=== PATIENT | female | born 1980 | race Caucasian/White ===

== ENCOUNTER 2020-08-15 08:32 | Emergency (ER) | payer SELFPAY ==
[2020-08-15 09:19] LABS: HEMATOCRIT 37.1 % (37.0-47.0); IMMATURE GRANULOCYTES 0.3 % (0.0-5.0); MEAN CELL VOLUME 82.3 fL CALC (80.0-100.0); MEAN CORPUSCULAR HGB 26.6 pG CALC (26.0-32.0); MEAN CORPUSCULAR HGB CONC 32.3 g/dL CAL (32.0-36.0); NEUT# 2.92 thou/uL (2.00-7.15); RED BLOOD COUNT 4.51 mill/uL (4.20-5.60); RED CELL DISTRI WIDTH 14.3 % (11.5-15.5)
[2020-08-15 09:31] LABS: ALBUMIN 4.5 g/dL (3.2-5.0); ALKALINE PHOSPHATASE 79 u/l (38-126); ANION GAP 11 (6-22 (CALC)); BILIRUBIN, TOTAL 0.9 mg/dL (0.0-1.4); BUN 13 mg/dL (7-17); BUN/CREATININE RATIO 20 (12-20 (CALC)); CARBON DIOXIDE 24 mmol/l (22-30); CHLORIDE 107 mmol/l (95-108); CREATININE 0.7 mg/dL (0.5-1.0); GFR > 60 ML/MIN (>=60 (CALC)); GFR FOR AFR.AMER. > 60 ML/MIN (>=60 (CALC)); POTASSIUM 3.9 mmol/l (3.5-5.1); SGOT/AST 20 u/l (14-36); SODIUM 138 mmol/l (137-146); TOTAL PROTEIN 7.6 g/dL (6.3-8.2)
[2020-08-15] MEDS ORDERED: ZOFRAN4 MG/TAB PO (11:08)
[2020-08-15] MEDS ORDERED: AFRIN NASAL SP0.05 % (11:08)
[2020-08-15 11:23] VITALS: BP 106/60
== END 2020-08-15 11:24 | disposition home or self-care (01) | DRG 206 ==
LOC: ED 08:32
PROVIDERS: Emergency Medicine
DX: J22 Unspecified acute lower respiratory infection (principal); R11.2 Nausea with vomiting, unspecified; F41.9 Anxiety disorder, unspecified; Z20.822 Contact with and (suspected) exposure to COVID-19

== ENCOUNTER 2020-09-17 05:54 | Emergency (ER) | payer SELFPAY ==
[~2020-09-17] VITALS: Ht 172.7 cm; Wt 85.0 kg
[~2020-09-17 05:54] MED LIST: AFRIN NASAL SP0.05 %; ZOFRAN4 MG/TAB PO
[2020-09-17] MEDS ORDERED: METFORMIN HCL500 M2 PO (06:16)
[2020-09-17] MEDS ORDERED: ESTRADIOL10 MCG (06:19)
[2020-09-17] MEDS ORDERED: ALLERGY RELF10 M3 PO (06:19)
[2020-09-17] MEDS ORDERED: ADVANCED E PO (06:20)
[2020-09-17 07:50] VITALS: BP 102/61
== END 2020-09-17 08:04 | disposition home or self-care (01) | DRG 90 ==
LOC: ED 05:54
DX: S06.0X0A Concussion without loss of consciousness, initial encounter (principal); S00.81XA Abrasion of other part of head, initial encounter; M54.2 Cervicalgia; F41.9 Anxiety disorder, unspecified; W01.190A Fall on same level from slipping, tripping and stumbling with subsequent striking against furniture, initial encounter; Y92.009 Unspecified place in unspecified non-institutional (private) residence as the place of occurrence of the external cause

== ENCOUNTER 2021-04-19 19:37 | Emergency (ER) | payer BC ==
[~2021-04-19] VITALS: Ht 172.7 cm; Wt 77.0 kg
[~2021-04-19 19:37] MED LIST changes: +ADVANCED E PO; +ALLERGY RELF10 M3 PO; +ESTRADIOL10 MCG; +METFORMIN HCL500 M2 PO
[2021-04-19] MEDS ORDERED: SERTRALINE25 MG PO (20:09)
[2021-04-19 20:48] LABS: HEMATOCRIT 32.2 % (37.0-47.0); HEMOGLOBIN 10.9 g/dl (12.0-16.0); IMMATURE GRANULOCYTES 0.1 % (0.0-5.0); MEAN CELL VOLUME 80.1 fL CALC (80.0-100.0); MEAN CORPUSCULAR HGB 27.1 pG CALC (26.0-32.0); MEAN CORPUSCULAR HGB CONC 33.9 g/dL CAL (32.0-36.0); NEUT# 6.94 thou/uL (2.00-7.15); RED BLOOD COUNT 4.02 mill/uL (4.20-5.60); RED CELL DISTRI WIDTH 14.5 % (11.5-15.5)
[2021-04-19 21:05] LABS: ALBUMIN 4.2 g/dL (3.2-5.0); ALKALINE PHOSPHATASE 175 u/l (38-126); AMYLASE 75 u/l (30-110); ANION GAP 13 (6-22 (CALC)); BILIRUBIN, TOTAL 0.8 mg/dL (0.0-1.4); BUN 19 mg/dL (7-17); BUN/CREATININE RATIO 23 (12-20 (CALC)); CARBON DIOXIDE 24 mmol/l (22-30); CHLORIDE 108 mmol/l (95-108); CREATININE 0.8 mg/dL (0.5-1.0); GFR > 60 ML/MIN (>=60 (CALC)); GFR FOR AFR.AMER. > 60 ML/MIN (>=60 (CALC)); LIPASE 202 u/l (23-300); POTASSIUM 3.8 mmol/l (3.5-5.1); SGOT/AST 128 u/l (14-36); SODIUM 141 mmol/l (137-146); TOTAL PROTEIN 7.4 g/dL (6.3-8.2)
[2021-04-19] MEDS ORDERED: ZOFRAN4 MG/TAB PO (22:32)
[2021-04-19 22:38] VITALS: BP 119/58
== END 2021-04-19 22:55 | disposition home or self-care (01) | DRG 392 ==
LOC: ED 19:37
PROVIDERS: Family Medicine
DX: R10.11 Right upper quadrant pain (principal); R10.13 Epigastric pain; R11.2 Nausea with vomiting, unspecified; F41.9 Anxiety disorder, unspecified
CPT/HCPCS: Q9967

== ENCOUNTER 2021-05-14 10:39 | Day surgery (SDC) | payer BC ==
[~2021-05-14 10:39] MED LIST changes: +HAIR SKIN & NAI1 TAB PO; +MULTI VIT PO; +POTASSIUM99 MG PO; +SERTRALINE25 MG PO; +VITAMIN D325 MCG PO
[2021-05-14] MEDS ORDERED: PERCOCET 5/325M1 TAB PO (13:44)
[2021-05-14 15:08] VITALS: BP 110/61
== END 2021-05-14 14:55 | disposition home or self-care (01) | DRG 419 ==
LOC: ORM 10:39
PROVIDERS: ATTEND Surgery
PROC: 0FT44ZZ Resection of Gallbladder, Percutaneous Endoscopic Approach (ICD-10-PCS; principal; 2021-05-14)
DX: K80.10 Calculus of gallbladder with chronic cholecystitis without obstruction (principal); Z98.84 Bariatric surgery status
CPT/HCPCS: J0131; J1100

== ENCOUNTER 2021-09-12 07:00 | Day surgery (SDC) | payer BC ==
[~2021-09-12] VITALS: Ht 172.7 cm; Wt 81.6 kg
[~2021-09-12 07:00] MED LIST changes: +BIOTIN5000 MC2 PO; -ESTRADIOL10 MCG; +ESTRADIOL10 MCG PO; +PERCOCET 5/325M1 TAB PO; +WELLBUTRIN100 M2 PO
[2021-09-12] MEDS ORDERED: EPIPEN 2-P0.3 MG/0.3 SC (08:45)
[2021-09-12 08:59] VITALS: BP 96/61
== END 2021-09-12 09:28 | disposition home or self-care (01) | DRG 951 ==
LOC: ENDO 07:00 → ORM 08:00 → ENDO 08:00
PROVIDERS: ATTEND Surgery
PROC: 0DJD8ZZ Inspection of Lower Intestinal Tract, Via Natural or Artificial Opening Endoscopic (ICD-10-PCS; principal; 2021-09-12)
DX: Z12.11 Encounter for screening for malignant neoplasm of colon (principal); K57.30 Diverticulosis of large intestine without perforation or abscess without bleeding; K64.8 Other hemorrhoids; E66.01 Morbid (severe) obesity due to excess calories; Z68.26 Body mass index [BMI] 26.0-26.9, adult; Z98.84 Bariatric surgery status; Z86.010 Personal history of colon polyps

== ENCOUNTER 2021-09-21 20:20 | Emergency (ER) | payer BC ==
[2021-09-21] VITALS (14 sets, daily range): BP systolic 93–109; BP diastolic 49–63
[~2021-09-21] VITALS: Ht 172.7 cm; Wt 82.8 kg
[~2021-09-21 20:20] MED LIST changes: +EPIPEN 2-P0.3 MG/0.3 SC
[2021-09-21 21:01] LABS: IMMATURE GRANULOCYTES 0.1 % (0.0-5.0); MEAN CELL VOLUME 83.3 fL CALC (80.0-100.0); MEAN CORPUSCULAR HGB 27.8 pG CALC (26.0-32.0); MEAN CORPUSCULAR HGB CONC 33.3 g/dL CAL (32.0-36.0); NEUT# 6.72 thou/uL (2.00-7.15); RED BLOOD COUNT 4.32 mill/uL (4.20-5.60); RED CELL DISTRI WIDTH 13.8 % (11.5-15.5)
[2021-09-21 21:16] LABS: ALBUMIN 4.2 g/dL (3.2-5.0); ANION GAP 14 (6-22 (CALC)); BUN 23 mg/dL (7-17); BUN/CREATININE RATIO 30 (12-20 (CALC)); CARBON DIOXIDE 24 mmol/l (22-30); CHLORIDE 107 mmol/l (95-108); CREATININE 0.8 mg/dL (0.5-1.0); GFR > 60 ML/MIN (>=60 (CALC)); GFR FOR AFR.AMER. > 60 ML/MIN (>=60 (CALC)); POTASSIUM 3.5 mmol/l (3.5-5.1); SODIUM 142 mmol/l (137-146); TOTAL PROTEIN 7.5 g/dL (6.3-8.2)
[2021-09-21 21:18] LABS: ALKALINE PHOSPHATASE 86 u/l (38-126); BILIRUBIN, TOTAL 0.3 mg/dL (0.0-1.4); D-DIMER 0.31 mg/L (0.19-0.60); SGOT/AST 20 u/l (14-36)
[2021-09-21 21:21] LABS: PROTHROMBIN TIME 10.4 SECONDS (9.0-12.5)
[2021-09-21 21:28] LABS: MYOGLOBIN 22 ng/mL (0 - 62)
[2021-09-21 21:46] LABS: TSH, 3RD GENERATION 0.41 uIU/mL (0.47 - 4.68)
[2021-09-21 23:57] LABS: URINE BILIRUBIN - DIPSTICK NEGATIVE (NEGATIVE); URINE BLOOD DIPSTICK NEGATIVE (NEGATIVE); URINE COLOR YELLOW; URINE GLUCOSE - DIPSTICK NEGATIVE (NEGATIVE); URINE KETONE TRACE mg/dL (NEGATIVE); URINE LEUK ESTERASE NEGATIVE (NEGATIVE); URINE PH 5.5 (4.5-8.0); URINE PROTEIN - DIPSTICK NEGATIVE (NEG-TRACE); URINE SPECIFIC GRAVITY >=1.030; URINE UROBILINOGEN - DIPSTICK 0.2 E.U./dL (0.2)
[2021-09-22] VITALS: BP 100/52
[2021-09-22] LABS: URINE NITRITE - DIPSTICK NEGATIVE (Negative)
[2021-09-22] MEDS ORDERED: MECLIZINE25 MG PO (00:13)
[2021-09-22 00:15] VITALS: BP 98/55
[2021-09-22 00:20] VITALS: BP 98/55
== END 2021-09-22 00:20 | disposition home or self-care (01) | DRG 149 ==
LOC: ED 20:20
PROVIDERS: Family Medicine
DX: R42 Dizziness and giddiness (principal); F41.9 Anxiety disorder, unspecified

== ENCOUNTER 2022-07-27 21:48 | Emergency (ER) | payer BC ==
[~2022-07-27] VITALS: Ht 172.7 cm; Wt 83.9 kg
[~2022-07-27 21:48] MED LIST changes: +MECLIZINE25 MG PO
[2022-07-27 22:36] VITALS: BP 117/73
[2022-07-27 22:45] VITALS: BP 120/72
[2022-07-27 23:00] VITALS: BP 116/78
[2022-07-27 23:12] LABS: BASO% 0.5 % (0-3); EOS% 0.1 % (0-8); HEMATOCRIT 37.5 % (37.0-47.0); HEMOGLOBIN 12.2 g/dl (12.0-16.0); IMMATURE GRANULOCYTES 0.1 % (0.0-5.0); LYMPH% 42.5 % (15-41); MEAN CORPUSCULAR HGB 26.3 pG CALC (26.0-32.0); MEAN CORPUSCULAR HGB CONC 32.5 g/dL CAL (32.0-36.0); MONO% 7.2 % (2-13); NEUT# 4.09 thou/uL (2.00-7.15); NEUT% 49.6 % (42-76); RED BLOOD COUNT 4.63 mill/uL (4.20-5.60); RED CELL DISTRI WIDTH 13.7 % (11.5-15.5)
[2022-07-27 23:15] VITALS: BP 108/75
[2022-07-27 23:30] VITALS: BP 117/87
[2022-07-27 23:32] LABS: ALBUMIN 4.5 g/dL (3.2-5.0); ALKALINE PHOSPHATASE 66 u/l (38-126); ANION GAP 13 (6-22 (CALC)); BILIRUBIN, TOTAL 0.4 mg/dL (0.02-1.3); BUN 16 mg/dL (7-17); BUN/CREATININE RATIO 19 (12-20 (CALC)); CHLORIDE 112 mmol/l (95-108); CREATININE 0.9 mg/dL (0.5-1.0); GFR FOR AFR.AMER. > 60 ML/MIN (>=60 (CALC)); GFR OTHER RACES > 60 ML/MIN (>=60 (CALC)); LIPASE 131 u/l (23-300); POTASSIUM 3.3 mmol/l (3.5-5.1); SGOT/AST 25 u/l (14-36); SODIUM 141 mmol/l (137-146); TOTAL PROTEIN 7.5 g/dL (6.3-8.2)
[2022-07-27 23:34] LABS: CARBON DIOXIDE 19 mmol/l (22-30)
[2022-07-28] VITALS (7 sets, daily range): BP systolic 101–112; BP diastolic 67–84
== END 2022-07-28 01:43 | disposition home or self-care (01) | DRG 392 ==
LOC: ED 21:48
PROVIDERS: Family Medicine
DX: R10.9 Unspecified abdominal pain (principal)
CPT/HCPCS: Q9967